=== PATIENT | female | born 1965 | race Caucasian/White ===

== ENCOUNTER → 2022-07-21 11:19 | Outpatient (BNVA) | payer BC, SELFPAY | PROVIDERS: Visit Provider Internal Medicine Rheumatology | DX: M19.90 Unspecified osteoarthritis, unspecified site (principal); Z79.899 Other long term (current) drug therapy; Z11.59 Encounter for screening for other viral diseases; M05.79 Rheumatoid arthritis with rheumatoid factor of multiple sites without organ or systems involvement; M19.041 Primary osteoarthritis, right hand; M19.042 Primary osteoarthritis, left hand; Z71.85 Encounter for immunization safety counseling | CPT/HCPCS: 36415; 73130; 73562; 73630; 80076; 82306; 82565; 85025; 85651; 86038; 86140; 86200; 86431; 86480; 86704; 86803; 87340 ==